=== PATIENT | female | born 1945 | race Caucasian/White ===

== ENCOUNTER → 2019-09-12 | Outpatient (CLI) | payer OTHER ==
[~2019-09-12] MED LIST: AGGRENOX CAPSU1 EACH PO; ALTACE10 M1 PO; ASPIRIN325; CALCIUM CARBO1250 MG; CLARITIN10 MG PO; FISH OIL 1,001000 M2 PO; ICAPS AREDS FO1 EACH PO; LUTEIN20 MG PO; NASONEX17 GM NS; NITROSTAT0.4 MG SL; PREDNISONE 5 MG5 M1 PO; PROBIOTIC1 EAC1 PO; SERTRALINE HCL100 MG PO; ULTRAM 50MG TAB50 MG PO; WELCHOL 625 MG625 MG PO; ZANTAC 150MG T150 M1 PO; ZETIA10 MG PO; ZOLOFT100 MG PO
== END ==
LOC: SJCVCIMAG 09:34
PROVIDERS: ATTEND Internal Medicine
DX: I08.8 Other rheumatic multiple valve diseases (principal); I65.23 Occlusion and stenosis of bilateral carotid arteries; R94.31 Abnormal electrocardiogram [ECG] [EKG]; I25.10 Atherosclerotic heart disease of native coronary artery without angina pectoris; I10 Essential (primary) hypertension; I44.7 Left bundle-branch block, unspecified; E78.5 Hyperlipidemia, unspecified; K75.4 Autoimmune hepatitis; E78.00 Pure hypercholesterolemia, unspecified; M19.90 Unspecified osteoarthritis, unspecified site; Z79.899 Other long term (current) drug therapy; Z82.49 Family history of ischemic heart disease and other diseases of the circulatory system; Z86.73 Personal history of transient ischemic attack (TIA), and cerebral infarction without residual deficits

== ENCOUNTER → 2020-03-04 | Outpatient (CLI) | payer OTHER | LOC: SJCVCIMAG 10:45 | PROVIDERS: ATTEND Internal Medicine | DX: I65.23 Occlusion and stenosis of bilateral carotid arteries (principal); R94.31 Abnormal electrocardiogram [ECG] [EKG]; I44.7 Left bundle-branch block, unspecified; E07.89 Other specified disorders of thyroid; I25.10 Atherosclerotic heart disease of native coronary artery without angina pectoris; I10 Essential (primary) hypertension; I35.0 Nonrheumatic aortic (valve) stenosis; E78.5 Hyperlipidemia, unspecified; K75.4 Autoimmune hepatitis; Z79.899 Other long term (current) drug therapy ==

== ENCOUNTER → 2020-03-25 | Outpatient (CLI) | payer OTHER ==
[~2020-03-25] MED LIST changes: +ACYCLOVIR5 GM TOP; -ALTACE10 M1 PO; +ALTACE10 MG PO; +ASPIRIN PO; +ASPIRIN-DIPYRI1 EACH PO; +AZELASTINE137 MCG/0. NASAL; +B COMPLEX1 EACH PO; +DIPYRIDAMOLE PO; +LIPITOR 40 MG T40 M1 PO; +MUPIROCIN1 GM TOP; +PEPCID20 MG PO; +PRESERVISION A1 EAC2 PO; +TIMOLOL MALEATE5 M1 OPHTHALMIC
--- NOTE | 2020-03-30 12:09 | PATH ---
[facility] [place] [address] PATHOLOGY RPT PROCEDURE Name: IGOR BASS Room #: REG [facility]#: [id number] Admission: 03/25/20 Date of : 47 Discharge: Report #: [id number] Path Case #: [id number] Note [facility] Accession Number: [id number] TESTS RESULT FLAG UNITS REF RANGE LAB Clinician Provided Cytology Information No. of containers..01 Other (Miscellaneous) Source: [A] 01 RIGHT THYROID DIAGNOSIS: [A] 02 RIGHT THYROID, FINE NEEDLE ASPIRATION POSITIVE FOR MALIGNANT CELLS. BETHESDA CATEGORY . PAPILLARY CARCINOMA. SPECIMEN CONSISTS OF ABUNDANT EPITHELIUM WITH PAPILLARY STRUCTURES, NUCLEAR PSEUDOINCLUSIONS AND GROOVES AND PSAMMOMA BODIES. THIS INTERPRETATION INCLUDES EVALUATION OF A CELL BLOCK. Comment: Technical Sourcing Recruiter slides were coreviewed by Dr. Freddy Max. Findings are discussed with Dr. Gee at 11:19 AM on 03/30/20. Pathologist ICD10: 02 C73 Signed out by: Guera Chaparro MD, Pathologist NPI- [id number] Performed by: Carlee Washington, Traffic Court Referee ([facility]) Gross description: 01 30ML, CLEAR PINK, 2FX 2AD /LCS 03/26/2020 1341 Local FLAG LEGEND: L-Low Normal,H-High Normal,LL-Alert Low,HH-Alert High <-Panic Low,>-Panic High,A-Abnormal,AA-Critical Abnormal Performed at: 01 [facility] [address] [place] [address] Freddy Max MD, [address] [address] Guera Chaparro MD, Specimen Comment: A courtesy copy of this report has been sent to [phone] Specimen Comment: [phone] Specimen Comment: Report sent to / DR VALLE Performed at: 01 [facility] [address] [place] [address] PATHOLOGY RPT PROCEDURE Name: IGOR ABSS Room #: REG [facility]#: [id number] Admission: 03/25/20 Date of : 47 Discharge: Report #: [id number] Path Case #: [id number] [facility] [address], [place], [place] [id number] MD Freddy Max MD Phone: [phone]
== END | disposition home or self-care (01) ==
LOC: ULTRA 09:31
PROVIDERS: ATTEND Otolaryngology Plastic Surgery within the Head & Neck
DX: C73 Malignant neoplasm of thyroid gland (principal); Z79.899 Other long term (current) drug therapy; Z88.8 Allergy status to other drugs, medicaments and biological substances

== ENCOUNTER → 2020-04-01 | Outpatient (CLI) | payer OTHER ==
[2020-04-01 10:29] LABS: HEMOGLOBIN 14.4 gm/dL (12.0-15.0); MCH 32.2 pg (26.0-34.0); MCHC 33.4 g/dL (28.0-37.0); MCV 96.2 fL (80.0-100.0); RBC 4.47 mil/uL (4.20-5.00); WBC 5.3 thou/uL (4.0-11.0)
[2020-04-01 10:50] LABS: ALBUMIN 3.8 g/dL (3.4-5.0); POTASSIUM 4.5 mmol/L (3.5-5.1); TOTAL BILIRUBIN 0.7 mg/dL (0.2-1.0); TOTAL PROTEIN 7.4 g/dL (6.4-8.2)
== END ==
LOC: RAD 10:05
PROVIDERS: ATTEND Otolaryngology Plastic Surgery within the Head & Neck
DX: C73 Malignant neoplasm of thyroid gland (principal); E04.1 Nontoxic single thyroid nodule; Z79.01 Long term (current) use of anticoagulants; Z98.890 Other specified postprocedural states

== ENCOUNTER → 2020-04-05 | Outpatient (CLI) | payer OTHER | LOC: LAB 08:45 | PROVIDERS: ATTEND Otolaryngology Plastic Surgery within the Head & Neck | DX: Z01.812 Encounter for preprocedural laboratory examination (principal); Z20.822 Contact with and (suspected) exposure to COVID-19 ==

== ENCOUNTER 2020-04-09 09:39 | Inpatient (IN) | payer OTHER ==
[~2020-04-09] VITALS: Ht 160 cm; Wt 68.5 kg
[2020-04-09 10:55] VITALS: BP 117/73
[2020-04-09] MEDS ORDERED: HYDROCODON-ACE1 EAC8 PO (15:37)
[2020-04-09] MEDS ORDERED: SYNTHROID100 MC1 PO (15:39)
[2020-04-09] MEDS ORDERED: CALCITRIOL0.25 MCG PO (15:45)
--- NOTE | 2020-04-09 15:50 | O ---
[facility] [place] [address] OPERATIVE REPORT Name: IGOR BASS Room #: 150-5 ADM IN M.R.#: [id number] Admission: 04/09/20 Attend Phys: Ganesh Gee MD Discharge: Date of : 47 Report #: [id number] THIS REPORT FOR: cc: Lukasz Gates Kent DO Walton,Ganesh Goins MD ~ DATE OF SERVICE: 04/09/2020 SURGEON: Ganesh Gee MD PREOPERATIVE DIAGNOSES: 1. Papillary carcinoma, right thyroid. 2. Thyroid nodule. POSTOPERATIVE DIAGNOSES: 1. Papillary carcinoma, right thyroid. 2. Thyroid nodule. OPERATION PERFORMED: 1. Total thyroidectomy. 2. Level 6 neck dissection. INDICATIONS: The patient is a 75-year-old female presenting with a right thyroid nodule. She underwent a carotid Doppler study, August 2019. Apparently, no mass was seen on the study, but there was vascularity noted in the thyroid. Some mention was made of the thyroid at that time and followup thyroid ultrasound was done 03/04/2020, showing a 2.8 cm indeterminate solid mass in the mid to right lower lobe and extending into the right isthmus with a 7 mm complex cyst in the left lobe. The patient was referred. A fine needle aspiration was arranged under ultrasound guidance and done on 03/15/2020 ordered by myself and a 1.8 x 2.7 x 2.8 solid hypoechoic mass in the mid right lower lobe. This did return findings positive for papillary carcinoma. The patient was biochemically euthyroid. She does not have a family history of thyroid cancer and no personal history of radiation exposure. Recommendations were made for definitive total thyroidectomy with level 6 neck dissection. DESCRIPTION OF PROCEDURE: The patient was brought to the operating room and placed supine on the operating table. After adequate general anesthesia was achieved via endotracheal intubation with a nerve integrity monitoring endotracheal tube, a shoulder roll was placed and neck was extended. As a separate part of the procedure, ground electrodes were placed in the soft tissue overlying the sternum and contralateral shoulder. Electrode resistance [facility] [address] [place] [address] OPERATIVE REPORT Name: IGOR BASS Room #: 150-5 [facility] IN ..#: [id number] Admission: 04/09/20 Attend Phys: Ganesh Gee MD Discharge: Date of : 47 Report #: [id number] and impedance was measured and found to be acceptable. Threshold and stimulus intensity parameters were set after connecting the leads from the endotracheal tube. The patient was then monitored stereotactically for the entirety of the case of approximately 3 hours in order to locate and protect the recurrent laryngeal nerve. She was then prepped with Betadine and draped in a sterile fashion. Procedure began with an incision in the midline of the neck, just above the manubrium and extending from the medial border of the sternocleidomastoid muscle on each side. This was dissected down to the soft tissue. Subplatysmal flaps were elevated superiorly and inferiorly and held forward with Gilpi forceps. Tissue was then divided vertically in the midline and retracted laterally, so that the strap muscles could be dissected off the thyroid. Immediately, it was noted that there was a significant amount of dense adhesions present from the thyroid gland to the overlying muscle. The patient did have mild elevation of her and a antithyroglobulin and antithyroid peroxidase antibodies. This is consistent with Clint's thyroiditis. The dissection began on the left lobe. The soft tissue and strap muscles were dissected off the gland and reflected laterally. Beginning superiorly, the superior vessels were sequentially identified, clamped between Ligaclips and divided. Middle thyroid vein was taken down between Ligaclips and then inferiorly the inferior vessels were sequentially identified, clamped between Ligaclips and divided. The inferior parathyroid was seen on this side running with the inferior thyroid artery and preserved. The isthmus was then dissected up and off the trachea. It was noted that there were also dense adhesions to the trachea as well, but there was a plane of dissection allowing me to take down the isthmus to the left of midline. This left lobe was then dissected. Dissection then began in the tracheoesophageal groove on the left. The recurrent nerve was found in its usual position and tracked anatomically to the cricothyroid joint and preserved. Superior parathyroid was found attached to the capsule. This was dissected off the thyroid. This was dissected and left pedicled on its blood supply. Zhang's ligament was taken down sharply keeping the nerve in direct vision and this lobe was delivered off the field as specimen to pathology. Frozen section was not done because of the fine needle aspiration confirmation. Hemostasis was assured with bipolar cautery and clip ligature. At this point, attention was turned to the right lobe. Beginning superiorly, the superior vessels were sequentially identified, clamped between Ligaclips and divided. There were again dense adhesions of the overlying strap muscle and inflammatory response throughout. Laterally, the middle thyroid vein was identified, taken down between Ligaclips and divided and then inferiorly, the inferior vessels were sequentially identified, clamped between Ligaclips and divided. The parathyroid gland on this side was found attached to the capsule, dissected free on its blood supply and preserved. This was a superior parathyroid. The inferior parathyroid was not seen. Dissection then began in the tracheoesophageal groove. [facility] [address] [place] [address] OPERATIVE REPORT Name: IGOR BASS Room #: 150-5 [facility] IN ..#: [id number] Admission: 04/09/20 Attend Phys: Ganesh Gee MD Discharge: Date of : 47 Report #: [id number] nerve was found in its usual anatomic position and tracked superiorly to the cricothyroid joint. It was confirmed with probe stimuli. The gland was then dissected from inferior to superior off of the trachea. Again, there were dense adhesions. The tumor was within the body of the thyroid and extending towards the isthmus. The dissection plane was off the trachea, but this did seem to be inflamed. The lobe was delivered off the field as specimen to pathology. The Zhang's ligament was taken down sharply. The nerve was preserved. At the end of the procedure, both nerves were stimulated and found to be intact. At that point, attention was turned to the level 6 neck dissection. Beginning on the right side, the recurrent laryngeal nerve was tracked and dissected from superior to inferior, up into the superior mediastinum. All lymph node bearing tissue inferior was then dissected with the borders of the dissection, carotid artery to carotid artery and from the cricoid to the upper mediastinum and thymus. The soft tissue was reflected from superior to inferior and lateral to medial. Keeping the nerve in direct vision, the right side tissue was taken down separately after going to the thymus with Harmonic scalpel. The inferior thyroid vein was clamped between Ligaclips and divided. Attention was then turned to the left side. Again, the nerve was identified and dissected inferiorly into the upper mediastinum, running in the tracheoesophageal groove. All soft tissue was then removed on a level 6 dissection on this left side completely. This was delivered off the field as specimen to pathology. Hemostasis was assured with bipolar cautery and clip ligature. Again, both nerves were stimulated at the upper mediastinum and found to be intact. The powdered Maureen was placed into each tracheoesophageal groove and then the strap muscles were closed in the midline with interrupted 3-0 Vicryl. Prior to closure, a 15-Albanian Julio drain was placed through a separate stab incision, curled into the wound and connected to bulb suction. The platysmal layer was then closed with interrupted 3-0 Vicryl, 4-0 Vicryl deep dermal sutures were then placed on skin followed by a 5-0 running subcuticular Prolene. The drain was sutured in place with 2-0 silk and connected to bulb suction. The wound was then dressed with Mastisol and Steri-Strips followed by an Op-Site. The patient was then returned to anesthesia, awake without difficulty, and returned to recovery in good condition. Sponge and needle counts were correct. There were no complications. Blood loss was about 20 mL. The patient will be watched until awake and stable. Presuming she does well, discharged up to the floor for monitoring overnight of her calcium. Written and verbal discharge instructions and emergency precautions have been given to her . DISCHARGE MEDICATIONS: Include Synthroid 100 mcg 1 p.o. every day, Tums 500 mg 1 p.o. b.i.d., ondansetron 4 mg tablet 1 q. 4-6 hours p.r.n., [address] [address] OPERATIVE REPORT Name: IGOR BASS Room #: 150-5 [facility] IN M.R.#: [id number] Admission: 04/09/20 Attend Phys: Ganehs Gee MD Discharge: Date of : 47 Report #: [id number] hydrocodone/acetaminophen 7.5/325 one to two q. 4-6 hours p.r.n., Keflex 500 mg 1 t.i.d. for 10 days. She is instructed on light activity and soft diet. She is instructed on drain precautions. <ELECTRONICALLY SIGNED> By: Ganesh Gee MD 04/09/20 1550 1517 1540 Ganesh Gee MD /nt
[2020-04-09 16:34] LABS: ALBUMIN 3.6 g/dL (3.4-5.0); MAGNESIUM 2.1 mg/dL (1.8-2.4)
[2020-04-09 16:38] VITALS: BP 138/77
--- NOTE | 2020-04-09 17:07 | NUR ---
Pt transferred from recovery room approx 1635. A&ox4. Denies pain. Dressing intact, small old drainage. RADHA drain in place. Vital signs stable. Able to tolerate PO intake without n/v. Call light within reach. Will continue to monitor.
[2020-04-09 20:40] VITALS: BP 128/70
--- NOTE | 2020-04-10 05:20 | NUR ---
PT AOX4. PT REPORTS 6-7/10 PAIN IN BACK AND NECK SURROUNDING INCISION SITE. PT RECEIVING PRN PO NORCO Q4HR WITH PRN IV MORPHINE Q1HR AVAILABLE. INTACT DRESSING TO INCISION SITE WITH BLOODY DRAINAGE TO STERISTRIPS, NO CHANGE IN AMOUNT THROUGHOUT SHIFT, NO ODOR OR REDNESS NOTED. PT TOLERATING PO INTAKE OF FLUIDS AND REGULAR DIET WITHOUT ISSUE. PT DENIES NAUSEA. PT AMBULATING WITH STANDBY ASSIST TO BEDSIDE COMMODE. PT REQUESTING MEDICATION TO PROMOTE SLEEP. ATTENDING PHYSICIAN GROUP NOTIFIED, CALL BACK RECEIVED FROM DR. SUSANA FRIED, ORDERS RECEIVED FOR ONETIME PO 10MG AMBIEN. PT RESTING IN BED THROUGHOUT SHIFT, FREQUENT REPOSITIONING ENCOURAGED, PT NOTED TO SHIFT INDEPENDENTLY WHILE IN BED. HEAD OF BED MAINTAINED GREATER THAN OR EQUAL TO 30 DEGREES. PT ENCOURAGED TO NOTIFY STAFF FOR ALL NEEDS, CALL LIGHT WITHIN REACH, BED ALARM ON, BED LOCKED IN LOWEST POSITION, FREQUENT MONITORING WILL CONTINUE.
[2020-04-10 07:50] VITALS: BP 134/71
[2020-04-10 09:51] VITALS: BP 134/71
[2020-04-10 10:00] VITALS: BP 134/71
--- NOTE | 2020-04-10 11:07 | NUR ---
Assumed pt care this am, VS stable. RADHA drain in place, serosanguinous drainage noted. Surgical dressing c/d/i. Pt reports no pain when assessed. Steady on her gait. DC orders given, instructions on medications, RADHA drain care and wound care given to the pt. Advised to see MD on Sunday for ff up and possible ewmoval of RADHA drain. Prescriptions and literature given to the pt. POC follow with no signs or verbalizations of distress noted. IV removed, pt is now DC came to pick the pt up.
== END 2020-04-10 11:21 | disposition home or self-care (01) | DRG 627 ==
LOC: OR 09:39 → EDSTATUS 09:43 → PRE 09:48 → TBA 10:02 → 4S 16:10
PROVIDERS: ADMIT Otolaryngology Plastic Surgery within the Head & Neck; ATTEND Otolaryngology Plastic Surgery within the Head & Neck
DX: C73 Malignant neoplasm of thyroid gland (principal)
CPT/HCPCS: 10102; 50010; 50101; 50386; 50417; 50455; 51412; 52190; 52220; 52287; 56524; 56526; 56528; 56668; 56760; 57006; 62110; 62900; 65020; 65040; 65130; 70005

== ENCOUNTER → 2020-08-24 | Outpatient (CLI) | payer OTHER ==
[~2020-08-24] MED LIST changes: +CALCITRIOL0.25 MCG PO; +HYDROCODON-ACE1 EAC8 PO; +SYNTHROID100 MC1 PO
== END ==
LOC: SJCVCIMAG 07:46
PROVIDERS: ATTEND Internal Medicine
DX: I08.0 Rheumatic disorders of both mitral and aortic valves (principal); R94.31 Abnormal electrocardiogram [ECG] [EKG]; I44.7 Left bundle-branch block, unspecified; I11.9 Hypertensive heart disease without heart failure; I25.10 Atherosclerotic heart disease of native coronary artery without angina pectoris; I65.23 Occlusion and stenosis of bilateral carotid arteries; E78.5 Hyperlipidemia, unspecified; K75.4 Autoimmune hepatitis; C73 Malignant neoplasm of thyroid gland; E78.00 Pure hypercholesterolemia, unspecified; Z90.710 Acquired absence of both cervix and uterus; Z88.5 Allergy status to narcotic agent; Z88.8 Allergy status to other drugs, medicaments and biological substances; Z79.899 Other long term (current) drug therapy; Z86.73 Personal history of transient ischemic attack (TIA), and cerebral infarction without residual deficits; Z82.49 Family history of ischemic heart disease and other diseases of the circulatory system

== ENCOUNTER → 2021-02-23 | Outpatient (CLI) | payer OTHER | LOC: SJCVCIMAG 09:32 | PROVIDERS: ATTEND Internal Medicine | DX: I25.10 Atherosclerotic heart disease of native coronary artery without angina pectoris (principal); I10 Essential (primary) hypertension; I35.0 Nonrheumatic aortic (valve) stenosis; E78.5 Hyperlipidemia, unspecified; C43.9 Malignant melanoma of skin, unspecified; Z79.899 Other long term (current) drug therapy; Z72.89 Other problems related to lifestyle; Z88.5 Allergy status to narcotic agent; Z88.8 Allergy status to other drugs, medicaments and biological substances ==

== ENCOUNTER → 2021-03-14 | Outpatient (CLI) | payer OTHER ==
[~2021-03-14] MED LIST changes: +LEVOTHYROXINE125 MC1 PO; +VITAMIN D325 MC3 PO
[2021-03-14 10:34] LABS: HEMATOCRIT 41.1 % (37.0-47.0); HEMOGLOBIN 13.6 gm/dL (12.0-15.0); MCH 32.4 pg (26.0-34.0); MCHC 33.1 g/dL (28.0-37.0); MCV 97.9 fL (80.0-100.0); RBC 4.19 mil/uL (4.20-5.00); WBC 3.8 thou/uL (4.0-11.0)
[2021-03-14 10:38] LABS: URINE BILIRUBIN NEGATIVE (Negative); URINE BLOOD TRACE (Negative); URINE CLARITY CLEAR; URINE COLOR YELLOW; URINE GLUCOSE-RANDOM* NEGATIVE (Negative); URINE KETONES NEGATIVE (Negative); URINE LEUKOCYTES-REFLEX NEGATIVE (Negative); URINE NITRITE-REFLEX NEGATIVE (Negative); URINE PROTEIN (DIPSTICK) NEGATIVE (Negative); URINE SPECIFIC GRAVITY <= 1.005 (1.005-1.035); URINE UROBILINOGEN 0.2 E.U./dl (0.2-1.0)
[2021-03-14 10:47] LABS: ALBUMIN 3.6 g/dL (3.4-5.0); CALCIUM 8.9 mg/dL (8.5-10.1); CREATININE 0.9 mg/dL (0.6-1.0); POTASSIUM 4.2 mmol/L (3.5-5.1)
[2021-03-14 10:48] LABS: INR 0.96; PROTIME 10.5 Seconds (10.5-12.1)
--- NOTE | 2021-03-14 11:22 | EKG ---
[address] [address] ELECTROCARDIOGRAM REPORT Name: IGOR BASS Room #: REG [facility]#: [id number] Admission: 03/14/21 Attend Phys: Marco Johnson MD Discharge: Date of : 47 Report #: [id number] [facility] Test Date: 2021-03-14 Test Time: 10:12:24 Pat Name: IGOR BASS Department: Room: Gender: F Carton Counter Feeder: Anna PEARCE : 1945 Requested By: Marco Johnson Order Number: [id number] : Yannick Cueva Measurements Intervals [place] Rate: 66 P: 61 OR: 190 QRS: 9 QRSD: 149 T: 155 QT: 451 QTc: 473 Interpretive Statements Sinus rhythm Left atrial enlargement Left bundle branch block Compared to ECG 10/14/2009 01:40:21 Atrial abnormality now present Left bundle-branch block now present ST (T wave) deviation no longer present Electronically Signed On 03-14-2021 11:22:14 MICA SIZER by Yannick Cueva [email or web address] <ELECTRONICALLY SIGNED> By: Yannick Cueva MD, [facility] 03/14/21 1122 101 101 Yannick Cueva MD, [facility] /EPI
== END ==
LOC: PAC 09:40
PROVIDERS: ATTEND Orthopaedic Surgery
DX: Z01.812 Encounter for preprocedural laboratory examination (principal); Z01.810 Encounter for preprocedural cardiovascular examination; I44.7 Left bundle-branch block, unspecified; I51.7 Cardiomegaly; R94.31 Abnormal electrocardiogram [ECG] [EKG]; T85.848A Pain due to other internal prosthetic devices, implants and grafts, initial encounter

== ENCOUNTER 2021-03-28 06:07 | Inpatient (IN) | payer OTHER ==
[~2021-03-28] VITALS: Ht 160 cm; Wt 66.7 kg
[2021-03-28 08:05] VITALS: BP 128/49
--- NOTE | 2021-03-28 13:48 | NUR ---
Patient arrived to unit at approximately 1300. Vitals are stable. Patient recieved pain medication at approx 1225 per OR. Davenport given to patient per request. PT working with patient; patient voided in bedpan prior. Polar Pack in place. TAVIA in place & intact. Patient instructed on L knee immobilization. Patient voices no further needs other than pain. Will continue to monitor.
[2021-03-28 15:57] VITALS: BP 116/67
[2021-03-28 20:30] VITALS: BP 108/52
--- NOTE | 2021-03-29 05:57 | NUR ---
RECEIVED CARE OF THIS PATIENT AT 1900. PATIENT ALERT ANDORIENTED X4. UP TO BSC.DRESSING ON L KNEE D/I WITH POLAR ICE. TEDS AND SCDS ON. IV IN LW PATENT WITH FLUIDS INFUSING. C/O PAIN, MED GIVEN. SLEPT MOST OF NIGHT.
[2021-03-29 08:00] VITALS: BP 105/57
--- NOTE | 2021-03-29 10:46 | NUR ---
LEFT TOTAL KNEE REPLACEMENT 03/28/21. A/O X 4. ROOM AIR. AD MARNIE WITH WALKER. LEFT WRIST PIV WITH D5 1/2 NS INFUSING @ 100 MLS/HR. CONT B/B. LEFT KNEE POLAR PACK IN PLACE, TAVIA DRESSING, BILATERAL SCDS AND TEDS. 05/28 IV CEFAZOLIN GIVEN, TOLERATING WELL, NO ADVERSE EFFECTS NOTED. WORKED WITH PT
[2021-03-29 11:12] VITALS: BP 108/52
--- NOTE | 2021-03-30 09:46 | O ---
[facility] [place] [address] OPERATIVE REPORT Name: IGOR BASS Room #: 440-P [facility] IN M.R.#: [id number] Admission: 03/28/21 Attend Phys: Marco Johnson MD Discharge: 03/29/21 Date of : 47 Report #: [id number] THIS REPORT FOR: cc: Lukasz Gates,Lukasz العلي,Marco Rm MD ~ DATE OF SERVICE: 03/28/2021 PREOPERATIVE DIAGNOSIS: Aseptic loosening, left total knee arthroplasty. POSTOPERATIVE DIAGNOSIS: Aseptic loosening, left total knee arthroplasty. PROCEDURE: Revision left total knee arthroplasty, all components. SURGEON: Marco Johnson MD STUDENT ASSISTANCE COUNSELOR: Martina Hoffman PA-C INDICATION FOR STUDENT ASSISTANCE COUNSELOR: Throughout the case, extensive retraction, manipulation of the knee was required. This was supported by my assistant professor of business. ANESTHESIA: LMA with adductor canal block. IMPLANTS: A Ackerman and Nephew size 4 revision Legion constrained femoral component with a 13 x 160 stem and a 6-mm offset special education tutor, a size 3 Legion revision tibial baseplate with an 11 x 160 stem and a 4 mm offset special education tutor, a size 18 constrained polyethylene, and a size 35 patella. TOURNIQUET TIME: 97 minutes. ESTIMATED BLOOD LOSS: 50 mL. COMPLICATIONS: None. SPECIMENS: Intraoperative cultures as well as frozen section were taken and sent. Frozen section revealed only 0-1 neutrophil per high power field. CONDITION UPON LEAVING THE OR: Stable. INDICATIONS FOR PROCEDURE: The patient is a 75-year-old female who has had a left total knee arthroplasty several years ago. She has had continued pain in this and workup for infection was negative. Bone scan revealed increased uptake around her component, suggestive of aseptic loosening. She had a history and exam consistent with this and after discussion with her, she elected for revision left total knee arthroplasty. [facility] [address] [place] [address] OPERATIVE REPORT Name: HOLLYIGOR BEVERLY Jignesh Room #: 440-P DIS IN ..#: [id number] Admission: 03/28/21 Attend Phys: Marco Johnson MD Discharge: 03/29/21 Date of : 47 Report #: [id number] DESCRIPTION OF PROCEDURE: Risks, benefits, alternatives, complications were discussed in detail with the patient including, but not limited to risk of anesthesia; risk of damage to nerves, arteries, blood vessels; risk for infection; bleeding; risk for continued knee pain; need for reoperation. Informed consent was obtained from the patient. The left knee was appropriately marked in the preoperative holding area. Adductor canal block was placed by anesthesia. Ancef was given for preoperative antibiotic. She was brought to operating room and placed in supine position on operating room table. LMA anesthesia was induced without complication. Tourniquet was placed on the left thigh. Left lower extremity was prepped and draped in normal sterile fashion. Timeout was performed, properly identifying the patient and procedure as well as the instrumentation and implants. All in the operating room in agreement. Left lower extremity was exsanguinated. Tourniquet was inflated. Tourniquet time was 97 minutes. Previous scar was used and 10 blade was used to make an incision through the scar and dissection was taken down sharply to the fascia. Deep flaps were developed medially and laterally. Fresh 10 blade was used to make a medial parapatellar arthrotomy and cultures of the synovial fluid were taken and sent. Several synovial tissue samples were taken and sent for intraoperative frozen section, which revealed 0-1 neutrophils per high power field. Attention was now turned to removal of the previous knee implant and gutters were reestablished with Bovie cautery and dissection was made around the femoral component with a rigid curved osteotome and the femoral component came off rather easily with no cement adherent to the femoral component. Polyethylene was removed and tibial tray was then removed also with flap and rigid osteotomes. This came out rather easily also with again, no cement adherent to the tibial component. The cement remaining on the bone was then removed and then the tibial canal was sequentially reamed up to a size 11. The reamer was stable. At this point, a cleanup cut was made using the tibial resection block and tibia was sized, found to be a size 3. This fit best with a 4-mm offset special education tutor, set at the 12 o'clock position. The proximal tibia was prepared and the trial implant was built on the back table in place. This included an 11 x 160 stem, a 4-mm offset special education tutor, and a 3 tibial baseplate. Attention was turned to the femur. This was reamed up to a size 13, at which, size 13 reamer was stable. A cleanup cut was made using the distal femoral resection guide. Femur was sized, found to be a size 4. This fit best with a 6-mm offset special education tutor at the 6 o'clock position. Anterior, posterior, and chamfer cuts were made. The femoral trial was then built on the back table including a 13 x 160 stem with a 6-mm offset special education tutor and a size 4 femoral component. Box cut was made. This was then trialed with a size 13 up to a size 18 polyethylene. The size 18 constrained polyethylene demonstrated full extension, and good stability medially and laterally throughout range of motion of the knee. The previous patellar component was then removed with oscillating saw. A small resection amount from the patella was then made and the patella was sized, found to be a size 35, and a size 35 patellar trial was placed. Knee was taken through range of motion, found to be stable, found to have good patellar tracking. Trial components were then [facility] [address] [place] [address] OPERATIVE REPORT Name: IGOR BASS Room #: 440-P DIS IN .R.#: [id number] Admission: 03/28/21 Attend Phys: Marco Johnson MD Discharge: 03/29/21 Date of : 47 Report #: [id number] removed. Bone ends were thoroughly irrigated with normal saline. Final implants were built on the back table and cemented in place using standard cementation techniques. While the cement cured, a periarticular injection consisting of morphine, ropivacaine, epinephrine, Toradol was placed around the knee joint capsule. After the cement cured, tourniquet was deflated and hemostasis was obtained with Bovie cautery. A final size 18 constrained polyethylene was placed. A gram of vancomycin was placed deep in the joint. Fascia was closed with 0 Vicryl. Skin was closed with 2-0 Vicryl, skin staple and a TAVIA dressing was applied. The patient tolerated this procedure well and went to recovery room under care of anesthesia postoperatively. <ELECTRONICALLY SIGNED> By: Marco Johnson MD 03/30/21 0946 1524 1726 Marco Johnson MD /sharri
--- NOTE | 2021-03-30 11:07 | PATH ---
[facility] [address] [place] [address] PATHOLOGY RPT PROCEDURE Name: RIA BASS Room #: 440-P DIS IN M.R.#: [id number] Admission: 03/28/21 Date of : 47 Discharge: 03/29/21 Report #: [id number] Path Case #: [id number] [facility] Accession Number: [id number] . 01 Material submitted: . knee - LEFT KNEE JOINT. Modifiers: left . 01 Clinical history: . PAIN DUE TO OTHER INTERNAL PROSTHETIC DEVICE IMPLANTS OR GRAFTS LEFT KNEE REVISION . 02 Frozen section diagnosis: . FROZEN SECTION DIAGNOSIS: (Buster Max M.D.): . Soft tissue "left knee": - Chronic inflammation with reactive changes and rare 1 to 2 neutrophils per high power field. . These findings are discussed with Dr. Marco Johnson and a written report was placed in the patient's chart. . Frozen section performed at [facility], [address] [facility] , [place] [address]. . . FROZEN SECTION GROSS DESCRIPTION: The specimen is received fresh labeled "Ria Vera" consists of marie pieces of tissue aggregating to 5 x 3 x 0.5 cm. [employer] section is frozen and submitted in cassette labeled A1. Additional tissue is submitted and submitted in cassette labeled A2. (DOLORES/claire; 03/28/2021) ISSA/JENIFER . 01 Diagnosis: Soft tissue "left knee joint": - Mild chronic synovitis with occasional 1-2 neutrophils per high power field. (SHA:tesha; 03/29/2021) QMS 03/29/2021 1114 Local . 01 Electronically signed: . Freddy Max MD, Pathologist NPI- [id number] . 01 Gross description: . SEE FROZEN SECTION GROSS DESCRIPTION. [address] [address] PATHOLOGY RPT PROCEDURE Name: RIA BASS Room #: 440-P [facility]#: [id number] Admission: 03/28/21 Date of : 47 Discharge: 03/29/21 Report #: [id number] Path Case #: [id number] . The specimen is received in formalin, labeled "StoneyRia ho, left knee joint". Received are 2 white cassettes containing multiple irregular segments of pale yellow to pink-marie tissue measuring 2.0 x 0.8 x 0.4 and 1.8 x 1.5 x 0.4 cm in aggregate dimensions. The tissue in the cassettes are transferred to A1-A2. Also received within the specimen container are multiple irregular pale white to pink-marie, rubbery soft tissue segments measuring 4.5 x 4.2 x 0.7 cm in aggregate dimensions. [employer] sections are submitted in cassettes A3-A4. ([facility]; 03/28/2021) NRI/LBQ 03/28/[address] [place] [address] . Pathologist provided ICD-10: M65.862 . 01 CPT . 498901, [id number] Specimen Comment: A courtesy copy of this report has been sent to [phone] Specimen Comment: Report sent to Specimen Comment: A duplicate report has been generated due to demographic updates. Performed at: [address], [place] [id number] MD Freddy Max MD Phone: [phone] Performed at: [address] [id number] MD Danyell Edgar MD Phone: [phone]
== END 2021-03-29 12:16 | disposition home or self-care (01) | DRG 468 ==
LOC: TBA 06:07 → 4S 06:07 → PRE 09:09 → 4S 13:00 → PRE 13:12 → 4S 03-29 12:16
PROVIDERS: ADMIT Orthopaedic Surgery; ATTEND Orthopaedic Surgery
PROC: 0SRU0JZ Replacement of Left Knee Joint, Femoral Surface with Synthetic Substitute, Open Approach (ICD-10-PCS; principal; 2021-03-28)
PROC: 3E0T3BZ Introduction of Anesthetic Agent into Peripheral Nerves and Plexi, Percutaneous Approach (ICD-10-PCS; principal; 2021-03-28)
PROC: 0SPU0JZ Removal of Synthetic Substitute from Left Knee Joint, Femoral Surface, Open Approach (ICD-10-PCS; principal; 2021-03-28)
DX: T84.033A Mechanical loosening of internal left knee prosthetic joint, initial encounter (principal); Z20.822 Contact with and (suspected) exposure to COVID-19; E78.00 Pure hypercholesterolemia, unspecified; F41.9 Anxiety disorder, unspecified; M19.011 Primary osteoarthritis, right shoulder; Y83.8 Other surgical procedures as the cause of abnormal reaction of the patient, or of later complication, without mention of misadventure at the time of the procedure; Y92.89 Other specified places as the place of occurrence of the external cause; Z88.6 Allergy status to analgesic agent; Z86.73 Personal history of transient ischemic attack (TIA), and cerebral infarction without residual deficits
CPT/HCPCS: 10102; 50010; 50101; 50415; 50954; 51130; 51225; 51320; 51412; 52001; 52282; 53000; 53078; 56528; 57095; 57103; 57179; 57982; 58384; 58415; 58418; 59148; 59149; 59150; 59151; 62110; 62900; 70005